=== PATIENT | male | born 1950 | race Two or more races ===

== ENCOUNTER 2017-04-19 15:00 | Outpatient (CLI) | payer MEDICARE, MEDICAID ==
--- NOTE | 2017-04-19 16:10 | Diagnostic Imaging Report ---
Indication: Right lower quadrant pain Technique: CT of the abdomen and pelvis utilizing automated exposure control with intravenous contrast. Venous scanning performed. CT dose: Total DLP 846.44 mGycm; CTDI vol 16.58 mGy Comparison: None Findings: Dependent atelectasis noted in the lung bases. Heart is borderline enlarged. There is no pericardial effusion. Multiple low-attenuation, well-circumscribed lesions are noted within the liver, largest is within the central right lobe amd measures 4 cm in diameter. It has density measurements compatible with a simple hepatic cyst. Similar appearing, smaller lesions most likely represent cysts but are too small to definitively characterize. Gallbladder is unremarkable in appearance. There is no intrahepatic or extrahepatic biliary ductal dilatation. Hepatic veins and portal veins appear patent. Spleen, adrenal glands and pancreas are unremarkable in appearance. The kidneys enhance symmetrically. There is no urinary tract stone or hydronephrosis bilaterally. Bladder is unremarkable in appearance. The prostate is mildly enlarged and slightly heterogeneous. There is no evidence of bowel obstruction. No free intraperitoneal fluid or air is identified. There is apparent thickening of the stomach wall, particularly the distal stomach. There is suggestion of some mild wall thickening involving some proximal small bowel loops. The appendix is normal in caliber. There is no periappendiceal inflammatory stranding to suggest acute appendicitis. The cecum and terminal ileum appear normal. No focal inflammatory change in the right lower quadrant is seen. No perienteric inflammatory change is seen. There is colonic diverticulosis without evidence of acute diverticulitis. There is a tiny fat-containing umbilical hernia. Abdominal aorta is normal in caliber with scattered atherosclerotic calcifications. There is no pathologically enlarged abdominal/pelvic lymphadenopathy. There are degenerative changes of the spine. No acute osseous abnormality is seen. Impression: Questionable thickening of the stomach and some proximal small bowel loops. Findings may be suggestive of a gastroenteritis in the appropriate clinical setting. Appendix is normal. No evidence of appendicitis. No focal inflammatory stranding in the right lower quadrant. No definite radiographic explanation for patient's right lower quadrant pain. Diverticulosis without evidence of acute diverticulitis. Prostatomegaly. Additional findings as above. The CT scanner at [facility] is accredited by the [employer] and the scans are performed using protocols designed to limit radiation exposure to as low as reasonably achievable to attain images of sufficient resolution adequate for diagnostic evaluation.
== END 2017-04-19 17:00 | disposition home or self-care (01) ==
LOC: CAT 15:00
DX: R10.31 Right lower quadrant pain (principal); K57.90 Diverticulosis of intestine, part unspecified, without perforation or abscess without bleeding; N40.0 Benign prostatic hyperplasia without lower urinary tract symptoms; K44.9 Diaphragmatic hernia without obstruction or gangrene
CPT/HCPCS: 74177; Q9967